=== PATIENT | female | born 2005 | race Caucasian/White ===

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

== ENCOUNTER → 2023-04-07 | Outpatient (CLI) | payer BC | LOC: COL.RAD 07:02 | DX: N83.8 Other noninflammatory disorders of ovary, fallopian tube and broad ligament (principal); E28.2 Polycystic ovarian syndrome ==